=== PATIENT | female | born 1940 | race Caucasian/White ===

== ENCOUNTER 2017-07-30 20:20 | Emergency (ER) | payer MEDICARE, SELFPAY | END 2017-07-30 23:02 | disposition home or self-care (01) | PROVIDERS: Emergency Provider Emergency Medicine; Family Provider Internal Medicine; Visit Provider Emergency Medicine | DX: M48.56XA Collapsed vertebra, not elsewhere classified, lumbar region, initial encounter for fracture (principal); K59.00 Constipation, unspecified; I48.0 Paroxysmal atrial fibrillation; Z87.891 Personal history of nicotine dependence; I10 Essential (primary) hypertension; E78.5 Hyperlipidemia, unspecified; K21.9 Gastro-esophageal reflux disease without esophagitis; E03.9 Hypothyroidism, unspecified; Z79.899 Other long term (current) drug therapy | CPT/HCPCS: 80053; 81001; 84436; 84443; 84484; 85025; 87275; 87276; 96360; 96375; 99284; J2405 ==

== ENCOUNTER 2017-08-04 08:42 | Inpatient (IN) | payer MEDICARE, SELFPAY | END 2017-08-07 01:42 | disposition E | DRG 208 | PROVIDERS: Admitting Provider Internal Medicine Adolescent Medicine; Emergency Provider Emergency Medicine; Family Provider Internal Medicine Adolescent Medicine; Visit Provider Internal Medicine Adolescent Medicine | DX: A41.01 Sepsis due to Methicillin susceptible Staphylococcus aureus; G93.40 Encephalopathy, unspecified; J80 Acute respiratory distress syndrome; J10.00 Influenza due to other identified influenza virus with unspecified type of pneumonia; E87.2 Acidosis; I25.89 Other forms of chronic ischemic heart disease; I25.119 Atherosclerotic heart disease of native coronary artery with unspecified angina pectoris; I48.0 Paroxysmal atrial fibrillation; I10 Essential (primary) hypertension; E86.0 Dehydration | CPT/HCPCS: 31500; 94002; 94003; 36415; 70450; 71010; 74022; 80048; 80053; 80305; 80329; 81001; 82550; 82553; 82803; 82962; 83735; 84484; 85025; 85347; 85378; 87040; 87070; 87077; 87186; 87205; 87486; 87507; 87581; 87633; 87798; 93005; 93458; 94640; 94760; 96365; 96375; 99152; 99285; C1725; C1769; G0378; J0692; J1644; J1956; J2720; J3370; Q9967 ==